=== PATIENT | female | born 2005 | race Hispanic/Latino ===

== ENCOUNTER 2025-05-06 19:24 | Emergency (ER) | payer MEDICAID ==
[~2025-05-06] VITALS: Ht 154.9 cm; Wt 71.2 kg
[2025-05-06 19:31] VITALS: BP 123/82; PULSE 80; RESP 16; TEMP 97.9
--- NOTE | 2025-05-06 19:35 | NUR ---
UA CUP PROVIDED
[2025-05-06] MEDS ORDERED: PERM60CR21 TP (19:52)
--- NOTE | 2025-05-06 19:52 | ERN ---
ED Note History of Present Illness Stated Complaint: RASH Chief Complaint: Skin Rash/Abscess Time Seen by MD: 19:33 Time Seen by Midlevel: 19:35 Dictation: 20 y/o f brought in by mother for rash diffuse, including the webbing of the fingers. Itching. No fever no nausea no vomiting diarrhea. No abdominal pain. Allergies: Coded Allergies: No Known Allergies (Unverified Allergy, Unknown, 05/06/25) Past Medical History Past Medical History: No Pertinent History Surgical History: Other Surgical History Other: LEFT ARM Review of System Dictation Constitutional: Negative for fever,chills, and weight loss Eyes: Negative for injury, pain,redness, and discharge ENT: Negative for injury,pain or swelling Cardiovascular: Negative for chest pain, palpitations, and edema Respiratory: Negative for shortness of breath, cough, and wheezing, Abdomen/GI: Negative for abdominal pain, nausea, vomiting, diarrhea, and constipation Back: Negative for injury and pain : Negative for injury, bleeding and discharge MS/Extremity: Negative for injury and deformity Skin: Positive for rash Neuro: Negative for headache, weakness, numbness, tingling, and seizure Psych: Negative for suicide ideation, homicidal ideation, and hallucinations Review of Systems: was completed Initial Vital Sign VS Vital Signs Date Time Temp Pulse Resp B/P (MAP) Pulse Ox O2 Delivery O2 Flow Rate FiO2 05/06/25 19:31 97.9 80 16 123/82 100 Room Air Physical Exam Dictation General: awake, alert, NAD Head/Face: Normocephalic, atraumatic Eyes: PERRL, EOMI, vision at baseline ENT: oral cavity clear, TMs clear, no signs of infection Neck: Trachea midline, supple, no nuchal rigidity Cardiovascular: RRR, normal S1/S2, No MRGs, no JVD Respiratory: CTAB, no respiratory distress, No rales or wheezes Abdomen: Soft, non-tender, non-distended, normal bowel sounds, no guarding or rebound. Skin: Multiple erythematous papules vesicles and your burrows, most prominent in finger webs, wrists, waistline,and back. Consistent with scabies, patient states she does have a dog inside her house. MS/Extremity: Pulses equal, no cyanosis, neurovascular intact, FROM Neuro: COAx4, GCS 15, strength 5/5, CN 2-12 intact, normal cerebellar exam, normal gait, Psych: Normal behavior, mood, and affect normal ED Course ED Course Vital Signs Date Time Temp Pulse Resp B/P (MAP) Pulse Ox O2 Delivery O2 Flow Rate FiO2 05/06/25 19:31 97.9 80 16 123/82 100 Room Air Medical Decision Making MDM MDM: 20 y/o f brought in by mother for rash diffuse, including the webbing of the fingers. Itching. No fever no nausea no vomiting diarrhea. No abdominal pain. Denies having any new detergent, soaps, creams, perfumes. Stated she has a dog in her house. On physical exam findings are consistent with scabies. Patient will be prescribed permethrin and follow up tomorrow with PCP. Differential diagnosis: Contact dermatitis, allergic reaction, scabies Rationale: Tests considered and ordered secondary to shared decision making include: Previous outside records reviewed: Old ER visits. Risk of complication and/or morbidity or mortality of patient management: None Medications-Per medication reconciliation Need for hospitalization: Patient does not meet criteria for hospitalization. Need for emergency major/minor surgery: No There are no social concerns with this patient. Prescription drug management Prescriptions will include symptomatic care Patient's prior external medical records from other ER visits were reviewed by me as indicated. Prior testing and results from previous visits were reviewed. Prior tests were taken into account with medical decision making and resource ut ilization, independent historian/historians were used to obtain complete medical history. I independently interpreted the test that were performed, results were reviewed by me and considered findings on radiology if ordered. Medical management and examination interpretation discussions were had by me with other qualified healthcare professionals as indicated for the patient's car e. DX & DISP Disposition: Discharge Departure Impression: Primary Impression: Scabies Condition: Stable Scripts Permethrin (Permethrin) 5 % Cream..g. 1 APPL TP ONCE for 1 Day, #60 GM 0 Refills massage into skin from head to soles of feet one time, leave on for 8-14 hours then remove by thorough washing Prov: IVONE FATIMA CNP 05/06/25 Additional Instructions: Follow up with PCP tomorrow. Referrals: NONE (PCP) Time of Disposition: 19:52 I have reviewed the case, and I agree with, Diagnosis and Plan IVONE FATIMA CNP May 06, 2025 19:52
== END 2025-05-06 20:08 | disposition home or self-care (01) ==
LOC: EDH 19:24
DX: B86 Scabies (principal)
CPT/HCPCS: 99282; 99283